=== PATIENT | male | born 1985 | race Caucasian/White ===

== ENCOUNTER 2023-08-05 14:12 | Emergency (ER) | payer BC, SELFPAY ==
[2023-08-05 14:44] VITALS: BP 162/72; PULSE 51; RESP 17; TEMP 36.6; O2SAT 98; BMI 29.2
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
== END 2023-08-05 15:33 | disposition home or self-care (01) ==
PROVIDERS: Emergency Provider Physician Assistant Medical
DX: M79.644 Pain in right finger(s) (principal); V49.40XA Driver injured in collision with unspecified motor vehicles in traffic accident, initial encounter
CPT/HCPCS: 73140; 99282; 99283